=== PATIENT | female | born 1990 | race Caucasian/White ===

== ENCOUNTER 2019-08-03 14:18 | Outpatient (CLI) | payer OTHER ==
[~2019-08-03] VITALS: Ht 167.6 cm; Wt 69.4 kg
[2019-08-03 14:36] VITALS: BP 125/72
--- NOTE | 2019-08-03 20:00 | Consultation ---
DATE OF CONSULTATION: 08/03/2019 CHIEF COMPLAINT: Diarrhea and abdominal pain. HISTORY OF PRESENT ILLNESS: This is a very pleasant 28-year-old female, complained of diarrhea chronic for about 8 years. She has had endoscopies before workup, which included gluten sensitivity and lactulose insensitivity but not intolerance came to the office complaining of pain and diarrhea. PAST MEDICAL HISTORY: 1. Asthma. 2. GERD. 3. IBS. 4. SIBO. 5. Anxiety. PAST SURGICAL HISTORY: Multiple cosmetic surgeries. MEDICATIONS: Please see medication reconciliation list. FAMILY HISTORY: No family history of GI malignancies. SOCIAL HISTORY: Drinks alcohol in the social occasion but denies any IV drug abuse or tobacco abuse. ALLERGIES: Gluten and dairy products. REVIEW OF SYSTEMS: A 10-point review of systems was performed and pertinent positives in HPI. PHYSICAL EXAMINATION: VITAL SIGNS: Temperature 98.4, blood pressure 121/72, pulse 69, respirations 20. HEENT: Normocephalic and atraumatic. Sclerae anicteric. NECK: Supple. No evidence of obvious lymphadenopathy. CARDIOVASCULAR: Regular rate and rhythm. Plus S1, S2. LUNGS: Clear to auscultation bilaterally. ABDOMEN: Positive bowel sounds. Soft and nontender. No rebound. No guarding. No peritoneal sign. EXTREMITIES: No cyanosis. No clubbing. No edema. ASSESSMENT: This is a 28-year-old female with chronic diarrhea, most probably irritable bowel syndrome and maybe combination of the SIBO. We will need to rule out microscopic colitis given the length of it and also given the patient has gluten sensitivity. PLAN: The patient was given Augmentin 875 mg twice a day for 10 days. We are going to try to get the patient scheduled for colonoscopy when authorization is obtained. If the above is negative, we will consider a trial of for chronic diarrhea. Jean Claude Mendoza M.D. DR: Robert JOB#: [id number] CC:
== END 2019-08-03 16:18 | disposition home or self-care (01) ==
LOC: PAN 14:18
DX: R19.7 Diarrhea, unspecified (principal); R10.9 Unspecified abdominal pain; K21.9 Gastro-esophageal reflux disease without esophagitis; F41.9 Anxiety disorder, unspecified; K56.609 Unspecified intestinal obstruction, unspecified as to partial versus complete obstruction; K58.9 Irritable bowel syndrome, unspecified
CPT/HCPCS: G0463

== ENCOUNTER 2019-11-09 12:56 | Outpatient (CLI) | payer OTHER ==
--- NOTE | 2019-11-13 14:33 | General Progress Note ---
Assessment/Plan Assessment/Plan: chronic diarrhea s/p treatmern with Augmentin s/p colonoscopy and biopsy no DX yet ? ibs add prn imodium add probiotics Subjective ROS Limited/Unobtainable: Yes Allergies: Coded Allergies: GLUTEN (Verified Allergy, Unknown, 08/03/19) Objective General Appearance: alert EENT: normal ENT inspection Neck: supple Cardiovascular: normal rate Respiratory/Chest: decreased breath sounds Abdomen: normal bowel sounds, non tender, soft Extremities: non-tender Jean Claude Mendoza MD Nov 13, 2019 14:33
== END 2019-11-09 14:56 | disposition home or self-care (01) ==
LOC: PAN 12:56
DX: R19.7 Diarrhea, unspecified (principal)
CPT/HCPCS: 99212